=== PATIENT | female | born 1995 | race Caucasian/White ===

== ENCOUNTER 2017-10-04 19:26 | Emergency (ER) | payer OTHER ==
[2017-10-04 19:33] VITALS: BP 106/73
[2017-10-04 19:59] LABS: BASOPHILS % (AUTO) 0.5 %; EOSINOPHILS # (AUTO) 0.1 10^3/uL (0.0-0.7); EOSINOPHILS % (AUTO) 1.3 %; HGB - HEMOGLOBIN 12.6 g/dL (12.0-16.0); LYMPHOCYTES % (AUTO) 38.3 %; MEAN CORPUSCULAR HEMOGLOBIN 28.5 pg (27.0-31.0); MEAN CORPUSCULAR VOLUME 86.3 fL (81.0-99.0); MEAN PLATELET VOLUME 9.2 fL (7.9-10.8); MONOCYTES # (AUTO) 0.4 10^3/uL (0.0-1.0); MONOCYTES % (AUTO) 5.6 %; NEUTROPHILS # (AUTO) 4.3 10^3/uL (1.5-6.6); NEUTROPHILS % (AUTO) 54.3 %; PLT - PLATELET COUNT 272 10^3/uL (130-450); RED BLOOD COUNT 4.44 10^6/uL (4.20-5.40); RED CELL DISTRIBUTION WIDTH 13.8 % (12.0-15.0); WHITE BLOOD COUNT 7.9 x10^3/uL (4.8-10.8)
[2017-10-04 20:11] LABS: ALBUMIN 4.4 g/dL (3.2-5.5); ALBUMIN/GLOBULIN RATIO 1.3 (1.0-2.2); BILIRUBIN,TOTAL 0.7 mg/dL (0.2-1.0); CALCIUM 9.1 mg/dL (8.5-10.3); CREATININE 0.5 mg/dL (0.4-1.0); TOTAL PROTEIN 7.8 g/dL (6.7-8.2)
[2017-10-04] MEDS ORDERED: predniSONE 20 MG TABLET PO STA (20:30)
--- NOTE | 2017-10-04 20:32 | ED Physician Documentation ---
PD HPI ABD PAIN - Stated complaint Stated Complaint: FEMALE - Chief complaint Chief Complaint: Abd Pain - History obtained from History obtained from: Patient - History of Present Illness Timing - onset: How many days ago (2) Timing - duration: Days (2) Timing - details: Gradual onset Pain level max: 4 Pain level now: 4 Quality: Cramping Location: All over / everywhere Improved by: Other (nothing) Worsened by: Other (nothing) Associated symptoms: Hematochezia Recently seen: Not recently seen - Additional information Additional information: Patient is a 22-year-old female who presents to the emergency department complaining of intermittent cramping abdominal pain over the past few days. She states she has been worked up for possible Crohn's versus ulcerative colitis. Has a colonoscopy scheduled for December. Noted blood and mucus in the stool today. This is bright red. No fevers. No vomiting Review of Systems Constitutional: denies: Fever, Chills Respiratory: denies: Cough GI: denies: Vomiting : denies: Dysuria, Now EGA Skin: denies: Rash Musculoskeletal: denies: Neck pain, Back pain Neurologic: denies: Headache PD PAST MEDICAL HISTORY - Past Medical History Past Medical History: Yes Endocrine/Autoimmune: HyPOthyroidism GI: Crohn's disease - Past Surgical History Past Surgical History: No - Present Medications Home Medications: Ambulatory Orders Medication Instructions Recorded Confirmed Levothyroxine [Synthroid] 100 mcg PO QDAC 10/04/17 10/04/17 Sertraline [Zoloft] 50 mg PO DAILY 10/04/17 10/04/17 predniSONE [Prednisone] 40 mg PO DAILY #10 tablet 10/04/17 - Allergies Allergies/Adverse Reactions: Allergies Allergy/AdvReac Type Severity Reaction Status Date / Time No Known Drug Allergies Allergy Verified 10/04/17 19:34 - Social History Does the pt smoke?: No Smoking Status: Never smoker PD ED PE NORMAL - Vitals Vital signs reviewed: Yes - General General: Alert and oriented X 3, No acute distress - HEENT HEENT: Moist mucous membranes - Neck Neck: Supple, no meningeal sign - Cardiac Cardiac: RRR - Respiratory Respiratory: No respiratory distress, Clear bilaterally - Abdomen Abdomen: Soft, Non tender, Non distended - Rectal Rectal: Other (Small external hemorrhoids. No bleeding. Otherwise normal rectal examination. SOL [place] present) - Derm Derm: Warm and dry - Neuro Neuro: Alert and oriented X 3 - Psych Psych: Normal mood, Normal affect Results - Vitals Vitals: Vital Signs - 24 hr 10/04/17 19:30 Temperature 36.8 C Heart Rate 65 Respiratory 18 Rate Blood Pressure 106/73 O2 Saturation 99 Oxygen O2 Source Room air - Labs Labs: Laboratory Tests 10/04/17 10/04/17 19:54 19:54 WBC 7.9 RBC 4.44 Hgb 12.6 Hct 38.3 MCV 86.3 MCH 28.5 MCHC 33.0 RDW 13.8 Plt Count 272 MPV 9.2 Neut # 4.3 Lymph # 3.0 [place] # 0.4 Eos # 0.1 Baso # 0.0 Absolute Nucleated RBC 0.00 Nucleated RBC % 0.1 Sodium 138 Potassium 3.5 Chloride 105 Carbon Dioxide 26 Anion Gap 7.0 BUN 7 Creatinine 0.5 Estimated GFR (MDRD) 152 Glucose 94 Calcium 9.1 Total Bilirubin 0.7 AST 15 ALT 10 Alkaline Phosphatase 76 Total Protein 7.8 Albumin 4.4 Globulin 3.4 Albumin/Globulin Ratio 1.3 Lipase 24 PD MEDICAL DECISION MAKING - ED course Complexity details: reviewed results, re-evaluated patient, considered differential, d/w patient ED course: Patient is a 22-year-old female with possible colitis. No fevers. Normal white count. Has had intermittent symptoms for approximately 8 years. We will trial her on a short course of steroids and see how she progresses. Will hold CT scan and antibiotics at this time. We will have her follow-up with her doctor for further care. Patient is well-appearing, nontoxic. Afebrile. Patient counseled regarding signs and symptoms for which I believe and urgent re -evaluation would be necessary. Patient with good understanding of and agreement to plan and is comfortable going home at this time This document was made in part using voice recognition software. While efforts are made to proofread this document, sound alike and grammatical errors may occur. Departure - Departure Disposition: 01 Home, Self Care Clinical Impression: Hematochezia Condition: Good Instructions: ED Hematochezia Stable Follow-Up: BRIANNA RODRIGUES [Primary Care Provider] - Within 1 week Antonio Kirkpatrick MD [Provider Admit Priv/Credential] - Prescriptions: predniSONE [Prednisone] 40 mg PO DAILY #10 tablet Comments: Take the steroids until gone. Return if you worsen including fevers, worsening pain or bleeding. Discharge Date/Time: 10/04/17 20:35
== END 2017-10-04 20:35 | disposition home or self-care (01) ==
LOC: ED 19:26
DX: K92.1 Melena (principal); E03.9 Hypothyroidism, unspecified
CPT/HCPCS: 36415; 80053; 83690; 85025; 99283; J7512

== ENCOUNTER 2017-10-10 21:41 | Emergency (ER) | payer OTHER ==
[2017-10-10 23:00] LABS: BASOPHILS % (AUTO) 0.4 %; EOSINOPHILS # (AUTO) 0.3 10^3/uL (0.0-0.7); HGB - HEMOGLOBIN 12.7 g/dL (12.0-16.0); LYMPHOCYTES # (AUTO) 3.6 10^3/uL (1.5-3.5); LYMPHOCYTES % (AUTO) 42.2 %; MEAN CORPUSCULAR HEMOGLOBIN 28.3 pg (27.0-31.0); MEAN CORPUSCULAR HGB CONC 32.6 g/dL (32.0-36.0); MEAN PLATELET VOLUME 9.5 fL (7.9-10.8); MONOCYTES # (AUTO) 0.6 10^3/uL (0.0-1.0); MONOCYTES % (AUTO) 7.4 %; PLT - PLATELET COUNT 286 10^3/uL (130-450); RED BLOOD COUNT 4.47 10^6/uL (4.20-5.40); RED CELL DISTRIBUTION WIDTH 13.7 % (12.0-15.0); WHITE BLOOD COUNT 8.5 x10^3/uL (4.8-10.8)
[2017-10-10 23:10] LABS: ALBUMIN/GLOBULIN RATIO 1.3 (1.0-2.2); BILIRUBIN,TOTAL 0.7 mg/dL (0.2-1.0); CALCIUM 8.5 mg/dL (8.5-10.3); CREATININE 0.6 mg/dL (0.4-1.0); TOTAL PROTEIN 7.2 g/dL (6.7-8.2)
--- NOTE | 2017-10-10 23:26 | ED Physician Documentation ---
PD HPI GI BLEED - Stated complaint Stated Complaint: ADB PX/DIARRHEA - Chief complaint Chief Complaint: Abd Pain - History obtained from History obtained from: Patient - History of Present Illness Timing - onset: How many weeks ago (1) Timing - details: Abrupt onset Pain level now: 8 Associated symptoms: BRBPR. No: Vomiting, Maroon stool, Black/tarry stool Improved by: Other (no ameliorating factors) Worsened by: Other (no exacerbating factors) Similar symptoms before: No diagnosis Recently seen: Emergency Dept (10/04) - Additional information Additional information: c/o bright red blood in stools since 10/03/17, is to have colonoscopy 10/23 by GI at [facility]. She was T+R 10/04 for this and was discharged after unremarkable w/u, prescribed prednisone. Presents at this time due to concern that bleeding continues and is associated with pain across lower back, more pronounced on left Review of Systems Constitutional: denies: Fever, Chills, Sweats Cardiac: reports: Reviewed and negative Respiratory: reports: Reviewed and negative GI: reports: Diarrhea (loose stool), Bloody / black stool. denies: Abdominal Pain, Nausea, Vomiting, Constipation : denies: Dysuria, Frequency Musculoskeletal: reports: Back pain PD PAST MEDICAL HISTORY - Past Medical History Endocrine/Autoimmune: HyPOthyroidism GI: Crohn's disease - Past Surgical History Past Surgical History: No - Present Medications Home Medications: Ambulatory Orders Medication Instructions Recorded Confirmed Levothyroxine [Synthroid] 100 mcg PO QDAC 10/04/17 10/04/17 Sertraline [Zoloft] 50 mg PO DAILY 10/04/17 10/04/17 Hydrocodone/Acetaminophen 1 - 2 each PO Q6HR PRN #14 tablet 10/10/17 [Hydrocodon-Acetaminophen 5-325] - Allergies Allergies/Adverse Reactions: Allergies Allergy/AdvReac Type Severity Reaction Status Date / Time No Known Drug Allergies Allergy Verified 10/10/17 21:56 - Social History Does the pt smoke?: No Smoking Status: Never smoker PD ED PE NORMAL - Vitals Vital signs reviewed: Yes - General General: Alert and oriented X 3, No acute distress, Well developed/nourished - Cardiac Cardiac: RRR, No murmur - Respiratory Respiratory: No respiratory distress, Clear bilaterally - Abdomen Abdomen: Normal bowel sounds, Soft, Non tender, Non distended, No organomegaly - Back Back: No CVA TTP - Derm Derm: Normal color, Warm and dry Results - Vitals Vitals: Vital Signs - 24 hr 10/10/17 10/11/17 21:54 00:00 Temperature 36.4 C L 36.5 C Heart Rate 89 70 Respiratory 16 16 Rate Blood Pressure 123/62 100/62 O2 Saturation 99 100 Oxygen O2 Source Room air - Labs Labs: Laboratory Tests 10/10/17 10/10/17 10/10/17 22:25 22:25 23:15 WBC 8.5 RBC 4.47 Hgb 12.7 Hct 38.9 MCV 87.0 MCH 28.3 MCHC 32.6 RDW 13.7 Plt Count 286 MPV 9.5 Neut # 4.0 Lymph # 3.6 H [place] # 0.6 Eos # 0.3 Baso # 0.0 Absolute Nucleated RBC 0.00 Nucleated RBC % 0.0 Sodium 136 Potassium 3.3 L Chloride 101 Carbon Dioxide 27 Anion Gap 8.0 BUN 6 Creatinine 0.6 Estimated GFR (MDRD) 123 Glucose 84 Calcium 8.5 Total Bilirubin 0.7 AST 14 ALT 11 Alkaline Phosphatase 79 Total Protein 7.2 Albumin 4.0 Globulin 3.2 Albumin/Globulin Ratio 1.3 Lipase 17 L Urine Color YELLOW Urine Clarity CLEAR Urine pH 8.0 H Ur Specific [place] 1.010 Urine Protein NEGATIVE Urine Glucose (UA) NEGATIVE Urine Ketones NEGATIVE Urine Occult Blood TRACE-LYSE Urine Nitrite NEGATIVE Urine Bilirubin NEGATIVE Urine Urobilinogen 0.2 (NORMAL) Ur Leukocyte Esterase NEGATIVE Ur Microscopic Review NOT INDICATED Urine Culture Comments NOT INDICATED Urine HCG, Qual NEGATIVE PD MEDICAL DECISION MAKING - ED course Complexity details: reviewed old records, reviewed results, re-evaluated patient , considered differential, d/w patient Departure - Departure Disposition: Home, Self Care Clinical Impression: Hematochezia Condition: Good Instructions: ED Hematochezia Stable Follow-Up: BRIANNA RODRIGUES [Primary Care Provider] - Prescriptions: Hydrocodone/Acetaminophen [Hydrocodon-Acetaminophen 5-325] 1 - 2 each PO Q6HR PRN #14 tablet PRN Reason: Pain Discharge Date/Time: 10/11/17 00:01
[2017-10-10 23:27] LABS: BILIRUBIN,URINE NEGATIVE (NEGATIVE); GLUCOSE, URINE (UA) NEGATIVE (NEGATIVE); KETONES,URINE (UA) NEGATIVE (NEGATIVE); LEUKOCYTE ESTERASE, URINE NEGATIVE (NEGATIVE); NITRITE,URINE NEGATIVE (NEGATIVE); OCCULT BLOOD,URINE TRACE-LYSE (NEGATIVE); PROTEIN,URINE NEGATIVE (NEGATIVE); UROBILINOGEN,URINE 0.2 (NORMAL) E.U./dL (NORMAL)
[2017-10-10 23:28] LABS: CLARITY,URINE CLEAR (CLEAR); HCG UR QUAL NEGATIVE
[2017-10-10] MEDS ORDERED: HYDROcod/ACET 5/325 Prepack 4 PO STA (23:49)
[2017-10-11 00:01] VITALS: BP 100/62
== END 2017-10-11 00:01 | disposition home or self-care (01) ==
LOC: ED 21:41
DX: K92.1 Melena (principal); E03.9 Hypothyroidism, unspecified; K50.90 Crohn's disease, unspecified, without complications
CPT/HCPCS: 36415; 80053; 81001; 81003; 81025; 83690; 85025; 87086; 99283